=== PATIENT | female | born 1945 | race Native Hawaiian/Other Pacific Islander ===

== ENCOUNTER 2016-02-11 11:14 | Outpatient (CLI) | payer OTHER | END 2016-02-11 12:14 | disposition home or self-care (01) | LOC: RAD 11:14 | DX: Z01.811 Encounter for preprocedural respiratory examination (principal) ==

== ENCOUNTER 2018-02-27 09:22 | Outpatient (CLI) | payer OTHER | END 2018-02-27 22:05 | disposition home or self-care (01) | LOC: US 09:22 | DX: R09.89 Other specified symptoms and signs involving the circulatory and respiratory systems (principal); I10 Essential (primary) hypertension | CPT/HCPCS: 93306 ==

== ENCOUNTER 2018-05-01 15:24 | Outpatient (CLI) | payer OTHER ==
[2018-05-01 15:50] LABS: POTASSIUM 3.9 mmol/L (3.6-5.2)
== END 2018-05-01 20:27 | disposition home or self-care (01) ==
LOC: LABW 15:24
PROVIDERS: Internal Medicine Cardiovascular Disease
DX: Z79.899 Other long term (current) drug therapy (principal); R79.89 Other specified abnormal findings of blood chemistry
CPT/HCPCS: 36415; 80048; 83880

== ENCOUNTER 2018-05-20 13:26 | Emergency (ER) | payer OTHER ==
[~2018-05-20] VITALS: Ht 162.6 cm; Wt 119.8 kg
[2018-05-20 14:50] VITALS: BP 152/73; TEMP 97.8
== END 2018-05-20 15:10 | disposition home or self-care (01) ==
LOC: ED 13:27
DX: M25.561 Pain in right knee (principal); S13.4XXA Sprain of ligaments of cervical spine, initial encounter; W18.39XA Other fall on same level, initial encounter; Y92.098 Other place in other non-institutional residence as the place of occurrence of the external cause
CPT/HCPCS: 99282

== ENCOUNTER 2019-12-05 15:58 | Outpatient (CLI) | payer OTHER ==
[2019-12-05 16:21] LABS: POTASSIUM 4.1 mmol/L (3.6-5.2)
== END 2019-12-06 00:01 | disposition home or self-care (01) ==
LOC: LABW 15:58
PROVIDERS: Internal Medicine Cardiovascular Disease
DX: Z79.899 Other long term (current) drug therapy (principal); R60.0 Localized edema
CPT/HCPCS: 36415; 80048; 83880

== ENCOUNTER 2019-12-08 12:54 | Outpatient (CLI) | payer OTHER | END 2019-12-08 23:28 | disposition home or self-care (01) | LOC: US 12:54 | DX: R09.89 Other specified symptoms and signs involving the circulatory and respiratory systems (principal) ==

== ENCOUNTER 2020-05-18 14:00 | Outpatient (CLI) | payer OTHER | END 2020-05-18 21:12 | disposition home or self-care (01) | LOC: LABW 14:00 | PROVIDERS: ATTEND Internal Medicine Cardiovascular Disease | DX: R06.09 Other forms of dyspnea (principal); Z79.899 Other long term (current) drug therapy | CPT/HCPCS: 36415; 80048; 83880 ==

== ENCOUNTER 2020-06-24 12:18 | Outpatient (CLI) | payer OTHER | END 2020-06-24 22:27 | disposition home or self-care (01) | LOC: RAD 12:18 | PROVIDERS: ATTEND Internal Medicine Sleep Medicine | DX: R06.02 Shortness of breath (principal) ==

== ENCOUNTER 2020-07-20 17:12 | Emergency (ER) | payer OTHER ==
[~2020-07-20] VITALS: Ht 162.6 cm; Wt 119.7 kg
[2020-07-20 17:31] VITALS: TEMP 98.5
[2020-07-20 17:55] LABS: PLATELET COUNT 147 K/uL (152-353)
[2020-07-20 18:47] LABS: POTASSIUM 4.8 mmol/L (3.6-5.2); SODIUM 138 mmol/L (136-145)
[2020-07-20 23:00] VITALS: BP 151/73
== END 2020-07-20 23:00 | disposition home or self-care (01) ==
LOC: ED 17:12
PROVIDERS: Family Medicine
DX: J40 Bronchitis, not specified as acute or chronic (principal); F41.8 Other specified anxiety disorders
CPT/HCPCS: 80053; 82550; 83880; 84484; 85027; 93005; 94664; 96372; 99283; J2930

== ENCOUNTER 2020-07-26 11:39 | Outpatient (CLI) | payer OTHER | END 2020-07-26 21:46 | disposition home or self-care (01) | LOC: LAB 11:39 | PROVIDERS: ATTEND Internal Medicine | DX: R05 Cough (principal) | CPT/HCPCS: 87070; 87205 ==

== ENCOUNTER 2020-08-16 11:00 | Outpatient (CLI) | payer OTHER | END 2020-08-16 21:25 | disposition home or self-care (01) | LOC: RESP 11:00 | PROVIDERS: ATTEND Internal Medicine Sleep Medicine | DX: J45.909 Unspecified asthma, uncomplicated (principal) ==

== ENCOUNTER 2021-01-05 10:40 | Outpatient (CLI) | payer OTHER ==
[2021-01-05 11:00] LABS: POTASSIUM 4.8 mmol/L (3.6-5.2)
== END 2021-01-05 20:22 | disposition home or self-care (01) ==
LOC: LABW 10:40
PROVIDERS: ATTEND Internal Medicine Cardiovascular Disease
DX: R60.0 Localized edema (principal); Z79.899 Other long term (current) drug therapy; R06.09 Other forms of dyspnea
CPT/HCPCS: 36415; 80048; 83880

== ENCOUNTER 2021-05-31 12:37 | Outpatient (CLI) | payer OTHER | END 2021-05-31 19:47 | disposition home or self-care (01) | LOC: CT 12:37 | PROVIDERS: ATTEND Internal Medicine | DX: R41.3 Other amnesia (principal) ==

== ENCOUNTER 2022-06-28 13:42 | Outpatient (CLI) | payer OTHER ==
[2022-06-28 14:01] LABS: POTASSIUM 3.5 mmol/L (3.6-5.2)
== END 2022-06-28 19:10 | disposition home or self-care (01) ==
LOC: LABW 13:42
PROVIDERS: ATTEND Internal Medicine Cardiovascular Disease
DX: Z79.899 Other long term (current) drug therapy (principal)
CPT/HCPCS: 36415; 80048